=== PATIENT | female | born 2000 | race Caucasian/White ===

== ENCOUNTER 2022-06-21 20:27 | Emergency (ER) | payer SELFPAY ==
[2022-06-21] MEDS ORDERED: Oxymetazoline HCl 0.05% ( 15 ML ) ONE (23:01)
== END 2022-06-21 23:09 | disposition home or self-care (01) ==
LOC: CSHERS 20:27
DX: U07.1 COVID-19 (principal)
CPT/HCPCS: 93005; 99284